=== PATIENT | male | born 1990 | race Two or more races ===

== ENCOUNTER 2024-03-03 00:31 | Emergency (ER) | payer SELFPAY ==
[2024-03-03] MEDS: Lidocaine 1% 5 ML VIAL INJECT ONE (00:42)
[2024-03-03] MEDS: Amoxicillin/Clavulanate K 875-125 MG Tab PO ONE (00:46)
== END 2024-03-03 01:36 | disposition home or self-care (01) ==
LOC: MW.ED 00:31
DX: S01.511A Laceration without foreign body of lip, initial encounter (principal); Z79.899 Other long term (current) drug therapy; Z75.8 Other problems related to medical facilities and other health care; W54.0XXA Bitten by dog, initial encounter
CPT/HCPCS: 12011; 99282; A9270; 99283; J3490